=== PATIENT | female | born 2000 | race Caucasian/White ===

== ENCOUNTER 2024-11-06 19:50 | Emergency (ER) | payer BC, OTHER ==
[~2024-11-06] VITALS: Ht 160 cm; Wt 90.0 kg
[~2024-11-06 19:50] MED LIST: ABILIFY10 MG PO; IBUPROFEN600 MG PO; LORATADINE10 MG PO; ROBITUSSIN DM118 ML PO; TRAZODONE HCL50 MG PO; TYLENOL325 MG PO
[2024-11-06] MEDS ORDERED: PRAZOSIN HCL1 MG PO (20:02)
[2024-11-06 20:27] LABS: BASOPHILS 0.9 % (0-2); EOSINOPHILS 1.7 % (0-6); HEMATOCRIT 41.4 % (35.0-50.0); HEMOGLOBIN 14.4 g/dL (12.0-18.0); LYMPHOCYTES 47.8 % (24-44); MCH 30.1 (27-36); MCHC 34.9 g/dl (30-36); MCV 86.3 fl (81-99); MONOCYTES 7.6 % (0-12); PLATELET COUNT 202 K/uL (140-440); RDW 13.2 (10.5-15.0)
[2024-11-06 20:42] LABS: BILIRUBIN, URINE NEGATIVE (negative); BLOOD/HGB, URINE LARGE (Negative); KETONE, URINE NEGATIVE (Negative); LEUK ESTERASE, URINE NEGATIVE (negative); NITRITE, URINE NEGATIVE (negative); PH, URINE 7.5 (5-7)
[2024-11-06 20:53] LABS: ALBUMIN 3.8 g/dL (3.4-5.0); ALBUMIN/GLOBULIN RATIO 1.06 (1.1-2.4); ALKALINE PHOSPHATASE 62 U/L (46-116); ALT (SGPT) 38 U/L (14-59); ANION GAP 11.9 (7-21); AST (SGOT) 24 U/L (15-37); BILIRUBIN, TOTAL 0.4 mg/dL (0.2-1.0); BUN/CREATININE RATIO 7.84 (6.0-28.6); CALCIUM 8.5 mg/dL (8.5-10.1); CARBON DIOXIDE 28 mmol/L (21-32); CHLORIDE 105 mmol/L (98-107); CREATININE, SERUM 1.02 mg/dL (0.55-1.02); GLOMERULAR FILTRATION RATE,EST 79 mL/min (>60); POTASSIUM 3.9 mmol/L (3.5-5.1); PROTEIN, TOTAL 7.4 g/dL (6.4-8.2); UREA NITROGEN 8 mg/dL (7-18)
[2024-11-06 20:58] LABS: BACTERIA, URINE RARE /hpf (negative); CASTS, URINE NONE SEEN \\lpf; CRYSTALS, URINE NONE SEEN (0-1+); EPITHELIAL CELLS, URINE SQUAMOUS 1+ /lpf (0-1+)
[2024-11-06 20:59] LABS: COLLECTION TYPE, URINE CLEAN CATCH; REFLEX CULTURE, URINE No (No)
[2024-11-06] MEDS ORDERED: NAPROSYN500 MG PO (21:02)
[2024-11-06 21:14] VITALS: BP 131/79
== END 2024-11-06 21:16 | disposition home or self-care (01) ==
LOC: ED 19:50
PROVIDERS: Family Medicine
DX: R10.30 Lower abdominal pain, unspecified (principal); J45.909 Unspecified asthma, uncomplicated; Z88.0 Allergy status to penicillin; Z79.899 Other long term (current) drug therapy
CPT/HCPCS: 36415; 80053; 81001; 84702; 85025; 99284